=== PATIENT | female | born 2000 | race Caucasian/White ===

== ENCOUNTER 2024-03-25 21:39 | Outpatient (CLI) | payer BC, MEDICAID, SELFPAY ==
[2024-03-25] VITALS (32 sets, daily range): BP systolic 127–142; BP diastolic 63–78; PULSE 76–105; O2SAT 91–100; BMI 30.9
[2024-03-25 22:01] LABS: Bilirubin Urine Negative (Negative); Blood Urine Negative (Negative); Glucose Urine UA Negative (Normal); Ketones Urine Negative (Negative); Leukocyte Esterase Urine Negative (Negative); Nitrate Urine Negative (Negative); Protein Urine Negative (Negative); Specific Gravity, Urine 1.018 (1.005-1.030); Urine Appearance Cloudy (CLEAR); Urine Color Yellow (Yellow)
[2024-03-25 22:05] LABS: Bacteria Urine None Seen /hpf; Hyaline Casts Urine 1.65 /lpf; RBC Urine 0-2 /hpf (0-2); Squamous Epithelial Cell Urine 0-5 /hpf (0-5); WBC Urine 0-5 /hpf (0-5)
[2024-03-25 22:08] LABS: Amphetamines Screen Urine Positive (Negative); Barbiturates Screen Urine Negative (Negative); Benzodiazepines Screen Urine Negative (Negative); Cocaine Screen Urine Negative (Negative); Opiate Screen Urine Negative (Negative); PCP Screen Urine Negative (Negative); THC Screen Urine Negative (Negative)
[2024-03-26 00:05] VITALS: BP 130/63; PULSE 94; RESP 16; TEMP 36.6; O2SAT 98
== END 2024-03-26 00:05 | disposition home or self-care (01) ==
LOC: OPOB 21:45 → OBGYN 21:46
PROVIDERS: Visit Provider Family Medicine
DX: O26.899 Other specified pregnancy related conditions, unspecified trimester (principal); Z3A.00 Weeks of gestation of pregnancy not specified; R10.2 Pelvic and perineal pain
CPT/HCPCS: 59025; 80306; 81001; 99211

== ENCOUNTER 2024-03-26 15:42 | Emergency (ER) | payer BC, MEDICAID, SELFPAY ==
[2024-03-26] VITALS (7 sets, daily range): BP systolic 112–114; BP diastolic 72–76; PULSE 71–101; RESP 15–25; TEMP 36.7; O2SAT 95–99
[2024-03-26] MEDS: sodium chloride 0.9% 1,000 ML 999 ML IV (15:45)
[2024-03-26] MEDS: prochlorperazine 10 mg/2 mL Inj IVP (15:45)
[2024-03-26] MEDS: diphenhydrAMINE 50 mg/mL SDV 1mL IVP (15:45)
--- NOTE | 2024-03-26 16:06 | USR_ITS ---
PROCEDURE INFORMATION: Exam: US , Limited Exam date and time: 03/26/2024 5:24 PM Age: 23 years old Clinical indication: Screening exam; Other: Fentanyl wihtdrawal. No care; TECHNIQUE: Imaging protocol: Real-time ultrasound of the maternal uterus with image documentation. Exam focused on the clinical indication. COMPARISON: No relevant prior studies available. FINDINGS: Gestation: Intrauterine gestation. heart rate: 136 bpm presentation and position: Vertex lie. Placenta: Anterior placenta. BIOMETRY: Estimated weight: 1784.92 g. EFW by AC, BPD, FL, HC, [place] 1985 Biparietal diameter (BPD): 7.6 cm. EGA (BPD) is 30 w 3 d. 0 % percentile Head circumference (HC): 27.73 cm. EGA (HC) is 30 w 2 d. 0 % percentile Abdominal circumference (AC): 28.77 cm. EGA (AC) is 32 w 5 d. 0 % percentile Femur length (FL): 5.74 cm. EGA (FL) is 30 w 1 d. 0 % percentile HC/AC: 0.96. (Normal range: 0.96 - 1.17) FL/HC: 20.7. (Normal range: 19.29 - 21.31) FL/BPD: 75.53. (Normal range: 71 - 87) FL/AC: 19.95. (Normal range: 20 - 24) MATERNAL: Cervix: Cervical length measures 4.6 cm. US/US OB limited [id number] IMPRESSION: Live intrauterine gestation. Findings consistent with intrauterine growth restriction.
[2024-03-26] MEDS: fentaNYL 50 mcg/mL INJ 2mL IVP (16:07)
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
[2024-03-26 16:57] LABS: Basophils # 0.1 10^3/uL (0.0-0.1); Basophils % 0.4 %; Eosinophils # 0.2 10^3/uL (0.0-0.8); Eosinophils % 1.7 %; Hematocrit 32.6 % (36-47); Lymphocytes # 2.6 10^3/uL (0.8-4.8); Lymphocytes % 17.8 %; Mean Corpuscular HGB Conc 33.4 g/dL (30-55); Mean Corpuscular Hemoglobin 30.1 pg (27-33); Mean Corpuscular Volume 90.1 fl (85-98); Mean Platelet Volume 10.8 fL (7.4-10.4); Monocytes # 0.9 10^3/uL (0.2-0.9); Monocytes % 5.9 %; Neutrophils # 10.63 10^3/uL (1.8-7.7); Neutrophils % 73.2 %; Nucleated Red Blood Cells % 0 %; Platelet Count 223 10^3/cmm (157-399); Red Blood Count 3.62 10^6/uL (3.85-5.65); Red Cell Distribution Width 11.7 % (12.1-15.1); White Blood Count 14.52 10^3/uL (3.29-11.43)
[2024-03-26 16:57] LABS: Bilirubin Urine Negative (Negative); Blood Urine Negative (Negative); Glucose Urine UA Negative (Normal); Ketones Urine Negative (Negative); Leukocyte Esterase Urine Negative (Negative); Nitrate Urine Negative (Negative); Protein Urine Negative (Negative); Specific Gravity, Urine 1.016 (1.005-1.030); Urine Appearance Clear (CLEAR); Urine Color Yellow (Yellow)
[2024-03-26] MEDS: fentaNYL 50 mcg/mL INJ 2mL 25 MCG IVP (16:57)
[2024-03-26 17:02] LABS: Bacteria Urine Trace /hpf; Hyaline Casts Urine 0-4 /lpf; RBC Urine 0-2 /hpf (0-2); Squamous Epithelial Cell Urine 0-5 /hpf (0-5); WBC Urine 0-5 /hpf (0-5)
[2024-03-26 17:04] LABS: Amphetamines Screen Urine Negative (Negative); Barbiturates Screen Urine Negative (Negative); Benzodiazepines Screen Urine Negative (Negative); Cocaine Screen Urine Negative (Negative); Opiate Screen Urine Negative (Negative); PCP Screen Urine Negative (Negative); THC Screen Urine Negative (Negative)
[2024-03-26] MEDS: buPROPion SR (12 HR) 150 mg Tablet PO (17:05)
[2024-03-26 17:29] LABS: Alanine Aminotransferase 8 U/L (0-33); Albumin Level 3.1 g/dL (3.5-5.2); Alkaline Phosphatase 72 U/L (35-105); Anion Gap 12.9 (5-19); Aspartate Amino Transferase 10 U/L (0-32); Blood Urea Nitrogen 5 mg/dL (6-20); Calcium 8.6 mg/dL (8.5-10.5); Carbon Dioxide 22 mmol/L (22-29); Chloride 107 mmol/L (98-107); Glomerular Filtration Rate 126.2 mL/min (90-130); Glucose 87 mg/dL (65-115); Osmolality Calculated 283 mOsm/kg (285-295); Potassium 3.9 mmol/L (3.5-5.1); Sodium 138 mmol/L (136-145); Total Bilirubin 0.2 mg/dL (0.15-1.2); Total Protein 6.1 g/dL (6.6-8.7)
[2024-03-26 17:30] LABS: Acetaminophen < 5.0 ug/mL (10-30); Alcohol Level < 10 mg/dL (0-10); Salicylate < 0.3 mg/dL (3-10)
--- NOTE | 2024-03-26 22:27 | PC.NURSE ---
Attempted to contact patient in regards to ultrasound results; patients number is disconnected and fathers number had no answer or voicemail.
== END 2024-03-26 18:43 | disposition home or self-care (01) ==
PROVIDERS: Emergency Provider Emergency Medicine
DX: O99.320 Drug use complicating pregnancy, unspecified trimester (principal); O36.5990 Maternal care for other known or suspected poor fetal growth, unspecified trimester, not applicable or unspecified; F11.90 Opioid use, unspecified, uncomplicated
CPT/HCPCS: 36415; 76815; 80053; 80306; 80307; 81001; 83605; 84443; 85025; 86140; 86850; 86900; 96374; 96375; 96376; 99284; J0780; J1200; J3010; J7030